=== PATIENT | female | born 1970 | race African-American/Black ===

== ENCOUNTER 2025-02-19 09:09 | Emergency (ER) | payer BC, SELFPAY ==
[2025-02-19 09:37] VITALS: BP 152/81; PULSE 86; RESP 18; TEMP 36.4; O2SAT 97; BMI 22.5
--- NOTE | 2025-02-19 10:19 | ED_ITS ---
HPI - General Adult General Chief complaint: Animal Bite Stated complaint: dog bite on leg Time Seen by Provider: 02/19/25 11:03 History of Present Illness ED Provider: Dr. Fernandez HPI narrative: 54 y/o F patient; without significant PMH: presents reporting accidental dog bite to left lower extremity approx 3 days ago while in [place]. Dog was unknown to patient. She updated her tetanus on 02/10 at [facility]. She did not seek medical care at time of exposure. She otherwise denies: fever or chills, SOB, cough/congestion, nausea/vomiting, abdominal pain, chest pain. She has noticed after her tetanus/hepatitis shots that the left side of her neck is more swolle n. She denies prior rabies series. Related Data Allergies Allergy/AdvReac Type Severity Reaction Status Date / Time No Known Allergies Allergy Verified 02/19/25 09:39 Review of Systems Review of Systems: Yes all other systems are reviewed and are negative PMFSH Past Medical History Attestation statement: The following information was validated with the patient. Source: unable to obtain Medical History Rabies exposure Physical Exam ED Vital Signs: Vital Signs - 24 hr 02/19/25 09:37 Temperature 97.6 F Pulse Rate 86 Respiratory Rate 18 Blood Pressure 152/81 H Pulse Oximetry 97 Oxygen Delivery Method Room Air BMI result Body Mass Index 22.5 Patient is afebrile and hemodynamically stable. Const General: cooperative and no acute distress Orientation/consciousness: patient oriented x3 HENMT Head: Yes normal to inspection and Yes atraumatic Eyes General: appearance normal, both eyes and all related structures Pupils: Equal, round and reactive pupils present EOM: EOMs intact bilaterally Neck Other: Small left-sided lymph node swelling without tenderness, erythema, flucutance Neck: Yes supple and No tender Chest Chest palpation & inspection: normal inspection of the chest and normal palpation of entire chest wall Resp Effort & Inspection: normal respiratory effort, able to speak in complete sentences and no cough Auscultation: clear to auscultation bilaterally Cardio Rate: regular rate Rhythm: regular rhythm Peripheral pulses: Peripheral pulses 2+ throughout GI Inspection: Yes normal to inspection, No Abdominal wall edema and No distended Palpation (GI): Soft to palpation, not firm, nontender, no guarding and not rigid Auscultation: normal bowel sounds Back/Spine/Pelvis Back: No back tenderness Neuro General: patient oriented x3 Cranial nerves: Yes Equal, round and reactive pupils present Course Course Course Narrative: Rapid medical examination performed in triage by Josey Mariano PA-C: Patient is a 54 year old assigned female at presenting to the emergency department after a dog scratch from a stray dog. Patient states that she was scratched 3 days ago by an unknown dog of unknown shots. Patient states that she recently had a tetanus shot. Detailed physical exam and review of systems are deferred to the orthotic/prosthetic clinician. Patient placed back in the waiting room pending room availability. Reevaluation(s) Reevaluation #1: Patient is afebrile and hemodynamically stable. LLE has only very small well healing lukas. No signs of surrounding erythema, fluctuance, tenderness. Patient requests rabies shot as dog was unknown to her. Ordered for rabies series. Left sided lymphadenopathy may be 2/2 to recent hepatitis and tetanus immunizations. Recommended patient continue to monitor and return for: worsening swelling, pain, fever, or development of overlying skin changes. As bite was 3 days ago and patient has a well healed wound, no indication for antibiotics at this time. Plan: Discharge to home Condition: Stable Discharge Plan Discharge Clinical Impression: Dog bite Patient Disposition: Home, Self-Care Instructions: Rabies (ED) Print Language: Malawian
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
[2025-02-19] MEDS: Rabies Vaccine (PCEC)/PF 1 ML VIAL IM (11:45)
[2025-02-19 11:59] VITALS: BP 152/81; PULSE 86; RESP 18; TEMP 36.4; O2SAT 97
--- OUTSIDE RECORDS SUMMARY | 2025-02-19 13:34 | XMS_ITS | Clinical Summary ---
Author Organization [facility] Address [address] [place] [address] Phone Care Team Providers Care Sql Application Developer Name Role Phone Unavailable Primary Care Provider Unavailabl e Allergies No known active allergies Medications amLODIPine (Norvasc) 10 mg tablet Take 1 tablet (10 mg) by mouth in the morning. 60 tablet 11/14/2024 Active Active Problems Problem Noted Date Diagnosed Date Breast deformity 02/08/2024 Left against medical advice 02/08/2024 Bilateral shoulder pain 02/08/2024 Social History Tobacco Use Types Packs/Day Years Used Date Smoking Tobacco: Never Passive Smoke Exposure: Never Smokeless Tobacco: Never Tobacco Cessation:Counseling Given: Not Answered Alcohol Use Standard Drinks/Week Comments Never 0 (1 standard drink = 0.6 oz pur e alcohol) Comments Unknown Sex and Gender Information Value Date Recorded Sex Assigned at Not on file Legal Sex Female 1:12 PM EDT Gender Identity Not on file Sexual Orientation Not on file Last Filed Vital Signs Vital Sign Reading Time Taken Comments Blood Pressure 172/95 11/14/2024 11:05 AM EDT Pulse 70 11/14/2024 11:05 AM EDT Temperature 36.7 C (98 F) 11/14/2024 11:05 AM EDT Respiratory Rate 20 11/14/2024 11:05 AM EDT Oxygen Saturation 99% 11/14/2024 11:05 AM EDT Inhaled Oxygen Concentration - - Weight 56.7 kg (125 lb) 11/14/2024 11:05 AM EDT Height 160 cm (5' 3 ) 11/14/2024 11:05 AM EDT Body Mass Index 22.14 11/14/2024 11:05 AM EDT Plan of Treatment Health Maintenance Due Date Last Done Comments CT Colonography 1972 Colonoscopy 1972 Colorectal Cancer Screening 1972 FIT-DNA 1972 FIT 1972 FOBT 1972 Sigmoidoscopy 1972 MMR Vaccines (1 of 1 - Standard series) 1973 Hepatitis B Vaccines (1 of 3 - 19+ 3-dose series) 1991 Pap Smear 1993 Cervical Cancer Screening 2002 HPV/Cotest 2002 Mammogram 2012 Pneumococcal Vaccine: 50+ Years (1 of 1 - PCV) 2022 Zoster Vaccines (1 of 2) 2022 Depression Screening 04/12/2024 Influenza Vaccine (#1) 2025 Creatinine Level 02/07/2025 02/08/2024 Potassium Level 02/07/2025 02/08/2024 HIV Screening Completed 08/04/2024, 04/14/2024 HIB Vaccines Aged Out No longer eligi ble based on patient's age to complete this topic HPV Vaccines Aged Out No longer eligi ble based on patient's age to complete this topic Meningococcal B Vaccine Aged Out No l onger eligible based on patient's age to complete this topic Meningococcal Vaccine Aged Out No heber alexsander eligible based on patient's age to complete this topic RSV <20 Months Aged Out No longer jluis gible based on patient's age to complete this topic Procedures Procedure Name Priority Date/Time Associated Diagnosis Comments COMPREHENSIVE METABOLIC PANEL STAT 02/08/2024 1:06 PM EDT from Last 3 Months or Most Recently Relevant to Health Maintenance Results * (ABNORMAL) Comprehensive metabolic panel (02/08/2024 1:06 PM EDT) Sodium 138 135 - 145 mmol/L 02/08/2024 1:25 PM EDT [facility] Potassium 3.6 3.5 - 5.0 mmol/L 02/08/2024 1:25 PM EDT [facility] Chloride 105 98 - 109 mmol/L 02/08/2024 1:25 PM EDT [facility] CO2 27 24 - 29 mmol/L 02/08/2024 1:25 PM EDT [facility] BUN 18(H) 7 - 17 mg/dL 02/08/2024 1:25 PM EDT [facility] Glucose 84 65 - 105 mg/dL 02/08/2024 1:25 PM EDT [facility] Creatinine 0.91 0.66 - 1.25 mg/dL 02/08/2024 1:25 PM EDT [facility] Calcium 8.9 8.4 - 10.2 mg/dL 02/08/2024 1:25 PM EDT [facility] Anion Gap 6 3 - 11 02/08/2024 1:25 PM EDT [facility] Osmolality Calc 287 280 - 297 mosm/kg 02/08/2024 1:25 PM EDT [facility] BUN/Creatinine Ratio 19.8 ratio 01/11 1:25 PM EDT [facility] Total Bilirubin 0.9 0.1 - 1.2 mg/dL 02/08/2024 1:25 PM EDT [facility] Aspartate Aminotransferase (AST) 23 14 - 36 U/L 02/08/2024 1:25 PM EDT [facility] Alanine Aminotransferase (ALT) 13 0 - 34 U/L 02/08/2024 1:25 PM EDT [facility] Total Protein 7.8 6.3 - 8.2 g/dL 02/08/2024 1:25 PM EDT [facility] Albumin Level 4.1 3.5 - 5.0 g/dL 02/08/2024 1:25 PM EDT [facility] Alkaline Phosphatase 58 40 - 180 U/L 02/08/2024 1:25 PM EDT [facility] eGFR 76 mL/min/1. 73m*2 02/08/2024 1:25 PM EDT [facility] Comment:eGFR is calculated u sing the CKD-EPI Equation. This is a better predictor of chronic kidney disease and is validated for values above 60. Blood Venous blood specimen / Unknown Venous / Unknown 02/08/2024 1:06 PM EDT 02/08/2024 1:12 PM EDT Socorro Kelly APRN LAB BLOOD ORDERABLES Final Result [facility] [place] [address], from Last 3 Months or Most Recently Relevant to Health Maintenance
--- OUTSIDE RECORDS SUMMARY | 2025-02-19 13:34 | XMS_ITS | Clinical Summary ---
Author Organization [facility] Address [address] [place] [address] Phone Care Team Providers Care Director Pharmacy Services Name Role Phone Physician, No Pcp Primary Care Provider Unavaila ble Allergies No known active allergies Medications amLODIPine (NORVASC) 2.5 mg tablet Take 1 tablet (2.5 mg total) by mouth 1 (one) time each day. 30 each 04/14/2024 Active Social History Tobacco Use Types Packs/Day Years Used Date Smoking Tobacco: Never Smokeless Tobacco: Never Tobacco Cessation:Counseling Given: Not Answered Alcohol Use Standard Drinks/Week Comments Never 0 (1 standard drink = 0.6 oz pur e alcohol) Comments Unknown Sex and Gender Information Value Date Recorded Sex Assigned at Female 04/14/2024 10:33 AM EST Legal Sex Female 9:52 AM EST Gender Identity Female 04/14/2024 10:33 AM EST Sexual Orientation Straight 04/14/2024 10 :33 AM EST Obstetrics History Last Filed Vital Signs Vital Sign Reading Time Taken Comments Blood Pressure 122/72 04/14/2024 10:08 AM EST Pulse 79 04/14/2024 10:08 AM EST Temperature 36.9 C (98.4 F) 04/14/2024 10:08 AM EST Respiratory Rate 18 04/14/2024 10:08 AM EST Oxygen Saturation 99% 04/14/2024 10:35 AM EST Inhaled Oxygen Concentration - - Weight 68.5 kg (151 lb 0.2 oz) 04/14/2024 10:08 AM EST Height 157.5 cm (5' 2 ) 04/14/2024 10:08 AM EST Body Mass Index 27.62 04/14/2024 10:08 AM EST Plan of Treatment Health Maintenance Due Date Last Done Comments Breast Cancer Screening 1972 Colorectal Cancer Screening: Colonoscopy 1972 DTaP,Tdap,and Td Vaccines (1 - Tdap) 1991 Hepatitis B Vaccines (1 of 3 - 19+ 3-dose series) 1991 Cervical Cancer Screening: P ap Smear 1993 Pneumococcal Vaccine: 50+ Ye ars (1 of 1 - PCV) 2022 Zoster Vaccines (1 of 2) 2022 Depression Screening 04/12/2024 Social Influencers of Health Screening 04/14/2024 COVID-19 Vaccine (1 - 2023-2 5 season) 2024 Influenza Vaccine (#1) 2024 RSV Immunization Adult Patie nts (1 - 1-dose 75+ series) 2047 HIV Screening Completed 04/14/2024 Hepatitis C Screening Completed 04/14/2024 HIB Vaccines Aged Out No longer eligi ble based on patient's age to complete this topic HPV Vaccines Aged Out No longer eligi ble based on patient's age to complete this topic Hepatitis A Vaccines Aged Out No long er eligible based on patient's age to complete this topic IPV Vaccines Aged Out No longer eligi ble based on patient's age to complete this topic MMR Vaccines Aged Out No longer eligi ble based on patient's age to complete this topic Meningococcal ACWY Vaccine Aged Out N o longer eligible based on patient's age to complete this topic Meningococcal B Vaccine Aged Out No l onger eligible based on patient's age to complete this topic RSV Immunization Patients Un nohemi 20 months Aged Out No longer eligible b ased on patient's age to complete this topic Varicella Vaccines Aged Out No longer eligible based on patient's age to complete this topic Procedures Procedure Name Priority Date/Time Associated Diagnosis Comments HEPATITIS C ANTIBODY WITH REFLEX TO MOLECULAR STUDY STAT 04/14/2024 11:22 AM EST RAPID HIV 1, 2 ANTIBODY WITH REFLEX TO DIFFERENTIATION STAT 04/14/2024 11:22 AM EST from Last 3 Months or Most Recently Relevant to Health Maintenance Results * Hepatitis C antibody with reflex to molecular study (04/14/2024 11:22 AM EST) Pathologist [facility] [place] Hepatitis C Antibody Nonreactive Nonreactive 04/17/2024 8:29 AM EST [facility] Hepatitis C Virus RNA Qualitative TNP Not detected IU/mL 04/17/2024 8:29 AM EST [facility] Hepatitis C Virus RNA Quantitative TNP IU/mL 04/17/2024 8:29 AM EST [facility] Log Hepatitis C Virus RNA TNP Log (10) IU/mL 04/17/2024 8:29 AM EST [facility] HCV Interpretation No HCV antibody detected Not detected 04/17/2024 8:29 AM EST [facility] Comment: HCV RNA PCR testing was cancelled because no HCV antibody was detected. For most patients, no further testing is required. If recent exposure is suspected, please consider HCV RNA PCR testing. Test performed at [facility], [address] , [place] [address] Kamini Montana MD, PhD - [employer] Blood Venous blood specimen / Unknown Venipuncture / Unknown 04/14/2024 11:22 AM EST 04/14/2024 11:35 AM EST us Solomon Gupta MD LAB BLOOD ORDERABLES Final R esult [facility] [address] [place] [address] * Rapid HIV 1, 2 antibody with reflex to differentiation (04/14/2024 11:22 AM EST) [facility] Rapid HIV 1&2 Negative Negative 04/14/2024 12:03 PM EST [facility] Blood Venous blood specimen / Unknown Venipuncture / Unknown 04/14/2024 11:22 AM EST 04/14/2024 11:35 AM EST Solomon Gupta MD LAB BLOOD ORDERABLES Final R esult [facility] [address] [place] [address], [place] [phone] from Last 3 Months or Most Recently Relevant to Health Maintenance Care Teams Director Pharmacy Services Relationship Specialty Start Date End Date Physician, No Pcp PCP - General 04/14/24
== END 2025-02-19 12:01 | disposition home or self-care (01) ==
PROVIDERS: Emergency Provider Emergency Medicine
DX: S81.852A Open bite, left lower leg, initial encounter (principal); M79.605 Pain in left leg; W54.0XXA Bitten by dog, initial encounter; Y92.9 Unspecified place or not applicable; Y99.8 Other external cause status; Z29.14 Encounter for prophylactic rabies immune globulin; Z20.3 Contact with and (suspected) exposure to rabies; Z23 Encounter for immunization; Z79.899 Other long term (current) drug therapy
CPT/HCPCS: 90375; 90471; 90472; 90675; 96372; 99282; 99284